=== PATIENT | female | born 1965 | race Caucasian/White ===

== ENCOUNTER → 2018-12-17 | Day surgery (SDC) | payer OTHER ==
[~2018-12-17] VITALS: Ht 160 cm; Wt 62.7 kg
[~2018-12-17] MED LIST: BUPIVACAINE MPF 0.25% 30 ML VIAL. ONE; CALC200T3 PO; DEXAMETHASONE SOD PHOS 20 MG/5 ML VIAL. ONE; FAMOTIDINE 20 MG/2 ML VIAL ONE; HEPARIN PF 500 UNIT/5 ML DISP.SYRIN. IV ONE; HEPARIN for IV BOLUS 10,000 UNIT/10 ML VIAL. ONE; HYDR-2761 PO; HYDR-3164 PO; HYDROcodone/APAP 5/325MG 1 TAB TABLET PO ONE; HYDROcodone/APAP 5/325MG 1 TAB TABLET PO PRN; HYDROmorphone 2 MG/ML VIAL IV PRN; IV RINGERS,LACTATED 1000ML 1,000 ML IV SCH; LIDOCAINE 1% PF 2 ML VIAL. ID PRN; LIDOCAINE 2% PF Vial for OR 5 ML VIAL. ONE; MELO7.5T5 PO; MIDAZOLAM HCL/PF 2 MG/2 ML VIAL. ONE; MORPHINE SULFATE 4 MG/ML VIAL. IV PRN; ONDANSETRON PF 4 MG/2 ML VIAL. IV PRN; ONDANSETRON PF 4 MG/2 ML VIAL. ONE; PROCHLORPERAZINE 10 MG/2 ML VIAL. IV PRN; PROPOFOL 20 ML IV ONE; SEVOFLURANE 31 TO 60 MINUTES. IH ONE; fentaNYL PF VIAL 100 MCG/2 ML VIAL IV PRN; fentaNYL PF VIAL 100 MCG/2 ML VIAL ONE
--- NOTE | 2018-12-17 09:19 | PDOC4 ---
Operative Note Operative Note Date: 12/17/2018 Preoperative diagnosis:Colon cancer Postoperative diagnosis: Same Procedure: Port-A-Cath placement left cephalic vein Surgeon: Marito Specimen: None Dictation: Patient is a 53-year-old female has recently undergone colon resection for colon cancer is needing long-term venous access for chemotherapy. Procedure of Port-A-Cath placement was explained to the patient in detail risk benefits were also discussed including bleeding infection alternatives to this procedure also discussed with the patient who seemed to understand and gave both verbal and written consent to have procedure performed. Patient was taken to the operating room placed in supine position general anesthesia was initiated once patient was sleep and intubated her neck and chest were prepped and draped usual sterile fashion using ChloraPrep. An area in the left deltopectoral groove was injected with quarter percent Marcaine plain incision was made with 15 blade scalpel was carried down through the subcutaneous tissue using electrocautery divided hemostasis the cephalic vein was visualized and controlled proximally and distally with silk ligatures the vein was partially opened 11 blade scalpel and a Salinger wire was placed through the cephalic vein transversing the subclavian into the superior vena cava this was all confirmed by fluoroscopy. At this point a peel-away dilator catheter was then placed over the wire which was placed into the superior vena cava the dilator and wire were removed and the catheter was placed through the peel-away to the superior vena cava the pillars then removed the port was placed on the end of the catheter a pocket was made on the anterior chest wall with blunt dissection and the port was sewn into place with 3-0 Prolene. Port was then accessed there was good blood return is easily flushed it was flushed with 6 mL of 100 units per millimeter heparin. The wound was then closed in 2 layers a deep layer running 3-0 Vicryl and skin was approximate with 4-0 Monocryl. The port was then accessed and packed with 1000 units per millimeter of heparin 2ml were used. Wound was dressed with Mastisol Steri-Strips and island dressing. Patient was awakened and in the operating room taken to recovery in stable condition all sponge instrument needle counts listed as correct estimated blood loss 10 mL SANTOS LOZADA MD Dec 17, 2018 09:19
--- NOTE | 2018-12-17 09:22 | DISCH ---
DISCHARGE INSTRUCTIONS Condition on Discharge Condition on Discharge: Stable Activity After Discharge Activity Instructions for Disc: Activity as tolerated Diet after Discharge Diet after Discharge: Regular Diet Texture: Regular Wound Incision Care Wound/Incision Care: May get incision wet Other wound/incision instructi: May shower in 24 hours Contacting the DRPhilipp after DC Call your doctor for: If your condition worsens Follow-Up Follow up with: Dr. Lozada in 2 weeks Treatment/Equipment after DC Adaptive Equipment Issued: None SANTOS LOZADA MD Dec 17, 2018 09:22
[2018-12-17] MEDS: HYDROcodone/APAP 5/325MG 1 TAB TABLET PO PRN ×2 (10:06→10:35)
[2018-12-17 10:30] VITALS: BP 115/73
== END | disposition home or self-care (01) ==
LOC: SURG 07:08
PROVIDERS: ATTEND Surgery
DX: C18.9 Malignant neoplasm of colon, unspecified (principal); Z88.0 Allergy status to penicillin; Z79.899 Other long term (current) drug therapy; Z98.51 Tubal ligation status; Z98.890 Other specified postprocedural states; Z90.710 Acquired absence of both cervix and uterus; Z90.49 Acquired absence of other specified parts of digestive tract; I83.90 Asymptomatic varicose veins of unspecified lower extremity; Z87.891 Personal history of nicotine dependence; Z80.3 Family history of malignant neoplasm of breast
CPT/HCPCS: 36561; A7015; C1788; J1100; J1644; J1956; J2001; J2250; J2405; J2704; J3010; J3490; J7120; 36556

== ENCOUNTER 2018-12-26 15:25 | Inpatient (IN) | payer OTHER ==
[~2018-12-26] VITALS: Ht 167.6 cm; Wt 61.2 kg
[~2018-12-26 15:25] MED LIST changes: -BUPIVACAINE MPF 0.25% 30 ML VIAL. ONE; -DEXAMETHASONE SOD PHOS 20 MG/5 ML VIAL. ONE; -FAMOTIDINE 20 MG/2 ML VIAL ONE; -HEPARIN PF 500 UNIT/5 ML DISP.SYRIN. IV ONE; -HEPARIN for IV BOLUS 10,000 UNIT/10 ML VIAL. ONE; -HYDROcodone/APAP 5/325MG 1 TAB TABLET PO ONE; -HYDROcodone/APAP 5/325MG 1 TAB TABLET PO PRN; -HYDROmorphone 2 MG/ML VIAL IV PRN; -IV RINGERS,LACTATED 1000ML 1,000 ML IV SCH; -LIDOCAINE 1% PF 2 ML VIAL. ID PRN; -LIDOCAINE 2% PF Vial for OR 5 ML VIAL. ONE; -MIDAZOLAM HCL/PF 2 MG/2 ML VIAL. ONE; -MORPHINE SULFATE 4 MG/ML VIAL. IV PRN; -ONDANSETRON PF 4 MG/2 ML VIAL. IV PRN; -ONDANSETRON PF 4 MG/2 ML VIAL. ONE; -PROCHLORPERAZINE 10 MG/2 ML VIAL. IV PRN; -PROPOFOL 20 ML IV ONE; -SEVOFLURANE 31 TO 60 MINUTES. IH ONE; -fentaNYL PF VIAL 100 MCG/2 ML VIAL IV PRN; -fentaNYL PF VIAL 100 MCG/2 ML VIAL ONE
[2018-12-26 17:59] VITALS: BP 128/78
[2018-12-26] MEDS ORDERED: ONDANSETRON PF 4 MG/2 ML VIAL. IV PRN (18:30)
[2018-12-26] MEDS ORDERED: ZOLPIDEM 5 MG TABLET. PO PRN (18:30)
[2018-12-26] MEDS ORDERED: MORPHINE SULFATE 4 MG/ML VIAL. IV PRN (18:30)
[2018-12-26] MEDS ORDERED: HYDROcodone/APAP 5/325MG 1 TAB TABLET PO PRN (18:30)
[2018-12-26] MEDS ORDERED: ACETAMINOPHEN 325 MG TABLET. PO PRN (18:30)
[2018-12-26] MEDS ORDERED: BISACODYL 10 MG SUPP.RECT. PR PRN (18:30)
[2018-12-26] MEDS ORDERED: MAGNESIUM HYDROXIDE 2,400 MG/30 ML ORAL.SUSP. PO PRN (18:30)
--- NOTE | 2018-12-26 18:46 | PDOC1 ---
History and Physical Date of Admission Date of Admission DATE: 12/26/18 TIME: 18:41 Identification/Chief Complaint Chief Complaint Left arm pain Source Source: Chart review, Patient History of Present Illness History of Present Illness 52yo F w/ PMHx smoking, polyarthralgias, carpal tunnel who p/w LUE pain to [facility] ED, found to have completely occluded left venous system DVT and transferred to [facility] for further care. Back 10/29/19 admitted with cecal mass and fluid collection and bowel obstruction, went to surgery with right hemicolectomy with adenocarcinoma of colon T3N2a, started on FOLFOX and recently had left subclavian permacath placement on 12/17/18 and has had left arm pain and some mild swelling since then. She noted mottling the past 2 days and it has been cool, so came to ED. Has some nausea currently and left arm pain and numbness. Past Medical History Cardiovascular: No pertinent hx Pulmonary: No pertinent hx GI: No pertinent hx Heme/Onc: Cancer (Colon Ca) Hepatobiliary: No pertinent hx Psych: No pertinent hx Musculoskeletal: Other Rheumatologic: No pertinent hx Infectious disease: No pertinent hx Renal/: No pertinent hx Endocrine: No pertinent hx Past Surgical History Past Surgical History: Colectomy, Colon Resection Family History Family History: Cancer, Drug Abuse Family History: Parent Social History ALCOHOL: rare Drugs: None Current Medications Current Medications Current Medications Ondansetron HCl (Zofran) 4 mg PRN Q6HRS PRN IV NAUSEA/VOMITING; Start 12/26/18 at 18:30 Zolpidem Tartrate (Ambien) 5 mg PRN QHS PRN PO INSOMNIA, MAY REPEAT IN 1HR; Start 12/26/18 at 18:30 Morphine Sulfate (Morphine Sulfate) 2 mg PRN Q1HR PRN IV PAIN; Start 12/26/18 at 18:30 Acetaminophen/ Hydrocodone Bitart (Lortab 5/325) 1 tab PRN Q4HRS PRN PO MILD PAIN; Start 12/26/18 at 18:30 Acetaminophen (Tylenol) 650 mg PRN Q6HRS PRN PO Headaches, Temp > 101.5F; Start 12/26/18 at 18:30 Senna/Docusate Sodium (Senna Plus) 1 tab BID PO ; Start 12/26/18 at 21:00 Magnesium Hydroxide (Milk Of Magnesia) 2,400 mg PRN Q12HR PRN PO CONSTIPATION; Start 12/26/18 at 18:30 Bisacodyl (Dulcolax Supp) 10 mg PRN DAILY PRN [place] CONSTIPATION; Start 12/26/18 at 18:30 Enoxaparin Sodium (Lovenox 60mg Syringe) 60 mg Q12HR SQ ; Start 12/26/18 at 23: 00 Active Scripts Active Reported [place] 5-325 Tablet (Acetaminophen/Hydrocodone Bitart) 1 Each Tablet 1-2 Tab PO Q4-6HRS Tums (Calcium Carbonate) 200 Mg Tab.chew 200 Mg PO PRN PRN Mobic (Meloxicam) 7.5 Mg Tablet 1 Tab PO DAILY Allergies Allergies: Coded Allergies: Penicillins (Verified Allergy, Intermediate, Heartbeat slowed down,throat tight,brokeout w/rash all over, 12/17/18) ROS General: YES: Fatigue, Malaise, Appetite; No: Chills, Night Sweats, Other PSYCHOLOGICAL ROS: YES: Anxiety; No: Behavioral Disorder, Concentration difficultie, Decreased libido, Depression, Disorientation, Hallucinations, Hostility, Irritablity, Memory difficulties, Mood Swings, Obsessive thoughts, Physical abuse, Sexual abuse, Sleep disturbances, Suicidal ideation, Other Eyes: No Blurry vision, No Decreased vision, No Double vision, No Dry eyes, No Excessive tearing, No Eye Pain, No Itchy Eyes, No Loss of vision, No Photophobia , No Scotomata, No Uses contacts, No Uses glasses, No Other HEENT: No: Heacaches, Visual Changes, Hearing change, Nasal congestion, Nasal discharge, Oral lesions, Sinus pain, Sore Throat, Epistaxis, Sneezing, Snoring, Tinnitus, Vertigo, Vocal changes, Other ALLERGY AND IMMUNOLOGY: No: Hives, Insect Bite Sensitivity, Itchy/Watery Eyes, Nasal Congestion, Post Nasal Drip, Seasonal Allergies, Other Hematological and Lymphatic: No: Bleeding Problems, Blood Clots, Blood Transfusions, Brusing, Night Sweats, Pallor, Swollen Lymph Nodes, Other ENDOCRINE: No: Breast Changes, Galactorrhea, Hair Pattern Changes, Hot Flashes , Malaise/lethargy, Mood Swings, Palpitations, Polydipsia/polyuria, Skin Changes , Temperature Intolerance, Unexpected Weight Changes, Other Breast: No New/Changing Breast Lumps, No Nipple changes, No Nipple discharge, No Other Respiratory: No: Cough, Hemoptysis, Orthopnea, Pleuritic Pain, Shortness of breath, SOB with excertion, Sputum Changes, Stridor, Tachypnea, Wheezing, Other Cardiovascular: No Chest Pain, No Palpitations, No Orthopnea, No Paroxysmal Noc. Dyspnea, No Edema, No Lt Headedness, No Other Gastrointestinal: Yes Nausea; No Vomiting, No Abdominal Pain, No Diarrhea, No Constipation, No Melena, No Hematochezia, No Other Genitourinary: No Dysuria, No Frequency, No Incontinence, No Hematuria, No Retention, No Discharge, No Urgency, No Pain, No Flank Pain, No Other, No , No , No , No , No , No , No Musculoskeletal: Yes Muscle Pain, Yes Muscular Weakness; No Gait Disturbance, No Joint Pain, No Joint Stiffness, No Joint Swelling, No Pain In:, No Swelling In:, No Other Neurological: No Behavorial Changes, No Bowel/Bladder ControlChng, No Confusion , No Dizziness, No Gait Disturbance, No Headaches, No Impaired Coord/balance, No Memory Loss, No Numbness/Tingling, No Seizures, No Speech Problems, No Tremors, No Visual Changes, No Weakness, No Other Skin: No Dry Skin, No Eczema, No Hair Changes, No Lumps, No Mole Changes, No Mottling, No Nail Changes, No Pruritus, No Rash, No Skin Lesion Changes, No Other, No Acne Physical Exam General: Alert, Oriented X3, Cooperative, No acute distress HEENT: Atraumatic, PERRLA, EOMI, Mucous membr. 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 Port site tender on left chest wall) Neuro: Normal gait, Normal speech, Strength at 5/5 X4 ext, Normal tone, Sensation intact, Cranial nerves 3-12 NL, Reflexes 2+ Psych/Mental Status: Mental status NL, Mood NL Vitals Vitals Vital Signs Date Time Temp Pulse Resp B/P (MAP) Pulse Ox O2 Delivery O2 Flow Rate FiO2 12/26/18 17:59 97.8 94 20 128/78 (95) 95 Room Air 97.8 Images Images Left arm venous US - Extensive DVT including brachial, cephalic and axillary veins Left arm arterial doppler - No evidence of acute arterial occlusion or high- grade stenosis. VTE Prophylaxis Ordered VTE Prophylaxis Devices: Yes VTE Pharmacological Prophylaxi: Yes Assessment/Plan Assessment/Plan A/P: Left arm DVT - extensive. Consulted vascular surgery who recommends arterial doppler, which was negative and to d/w IR for consideration for thrombolysis. I just ordered therapeutic lovenox, may need to wait until AM for this to avoid extensive bleeding. Hematology consulted as well Colon Ca - s/p right hemicolectomy with adenocarcinoma of colon T3N2a, started on FOLFOX and recently had left subclavian permacath placement. Consult colorectal surgery and Oncology Smoking - counseled on cessation, offered nicotine patch Polyarthralgias - with h/o carpal tunnel - will cont pain management FEN - General diet PPX - Lovenox FULL CODE Inpatient for extensive DVT DAVID BROOKS MD Dec 26, 2018 18:46
--- NOTE | 2018-12-26 18:55 | RAD ---
Indication: Weak pulses. History of DVT. TECHNIQUE: Grayscale, color Doppler and spectral waveform images of the left upper extremity arteries. COMPARISON: None FINDINGS: The major left upper extremity arteries are patent with no elevated velocity. IMPRESSION: No evidence of acute arterial occlusion or high-grade stenosis. Electronically signed by: Curtis Cruz DO (12/26/2018 6:53 PM) [facility]
[2018-12-26 19:05] VITALS: BP 117/75
[2018-12-26] MEDS: SENNOSIDES/DOCUSATE 8.6/50MG TABLET. PO SCH (21:00)
--- NOTE | 2018-12-26 23:07 | NUR ---
Held night dose of lovenox due to pt receiving it in ED before admission and per Dr. Contreras note to prevent excessive bleeding to take in morning.
[2018-12-26 23:20] VITALS: BP 139/81
[2018-12-27 03:40] VITALS: BP 127/78
[2018-12-27 04:57] LABS: BASO # 0.1 x10^3/uL (0.0-0.2); BASO % 1 % (0-3); EOS # 0.1 x10^3/uL (0.0-0.7); EOS % 1 % (0-3); HEMATOCRIT 42.5 % (36.0-47.0); HEMOGLOBIN 14.1 g/dL (12.0-15.5); LYMPH % 25 % (24-48); MEAN CORPUSCULAR HEMOGLOBIN 29 pg (25-35); MEAN CORPUSCULAR HGB CONC 33 g/dL (31-37); MEAN CORPUSCULAR VOLUME 89 fL (79-100); MONO # 0.2 x10^3/uL (0.0-1.1); MONO % 3 % (0-9); NEUT # 5.6 x10^3uL (1.8-7.7); NEUT % 70 % (31-73); PLATELET COUNT 269 x10^3/uL (140-400); RED BLOOD COUNT 4.78 x10^6/uL (3.50-5.40); RED CELL DISTRIBUTION WIDTH 15.5 % (11.5-14.5)
[2018-12-27 06:17] LABS: CALCIUM 10.3 mg/dL (8.5-10.1); CREATININE 0.7 mg/dL (0.6-1.0); GFR 87.5; POTASSIUM 4.1 mmol/L (3.5-5.1)
[2018-12-27 07:40] VITALS: BP 131/89
--- NOTE | 2018-12-27 07:53 | PDOC2 ---
CONSULT Date of Consult Date of Consult DATE: 12/27/18 TIME: 07:44 Reason for Consult Reason for Consult: arm swelling, colon cancer Identification/Chief Complaint Chief Complaint arm swelling, after having port placed 12/17/18 History of Present Illness Reason for Visit: 53 yo F w/ PMHx smoking, polyarthralgias, carpal tunnel who p/w LUE pain to [facility] ED, found to have completely occluded left venous system DVT and transferred to [facility] for further care. 10/29/19, she was admitted with cecal mass and fluid collection and bowel obstruction, went to surgery with right hemicolectomy with adenocarcinoma of colon T3N2a, started on FOLFOX and recently had left subclavian permacath placement on 12/17/18 and has had left arm pain and some mild swelling since then. She noted mottling the past 2 days prior to admit. Arterial studies of LUE showed no arterial occlusion. Has some nausea currently and left arm pain that has gotten better. She has palpable pulses and her LUE is warm this morning. She is itching for cup of coffee. Very afraid of needles; does not think she will be able to do Lovenox at home. Has tried full aspirin previously, and it bothered her stomach. Past Medical History Cardiovascular: No pertinent hx Pulmonary: No pertinent hx GI: No pertinent hx Heme/Onc: Cancer (Colon Ca) Hepatobiliary: No pertinent hx Psych: No pertinent hx Musculoskeletal: Other Rheumatologic: No pertinent hx Infectious disease: No pertinent hx Renal/: No pertinent hx Endocrine: No pertinent hx Past Surgical History Past Surgical History: Colectomy, Colon Resection Family History Family History: Cancer, Drug Abuse Social History Social History: Parent ALCOHOL: rare Drugs: None Current Medications Current Medications Current Medications Ondansetron HCl (Zofran) 4 mg PRN Q6HRS PRN IV NAUSEA/VOMITING; Start 12/26/18 at 18:30 Zolpidem Tartrate (Ambien) 5 mg PRN QHS PRN PO INSOMNIA, MAY REPEAT IN 1HR; Start 12/26/18 at 18:30 Morphine Sulfate (Morphine Sulfate) 2 mg PRN Q1HR PRN IV PAIN; Start 12/26/18 at 18:30 Acetaminophen/ Hydrocodone Bitart (Lortab 5/325) 1 tab PRN Q4HRS PRN PO MILD PAIN; Start 12/26/18 at 18:30 Acetaminophen (Tylenol) 650 mg PRN Q6HRS PRN PO Headaches, Temp > 101.5F; Start 12/26/18 at 18:30 Senna/Docusate Sodium (Senna Plus) 1 tab BID PO ; Start 12/26/18 at 21:00 Magnesium Hydroxide (Milk Of Magnesia) 2,400 mg PRN Q12HR PRN PO CONSTIPATION; Start 12/26/18 at 18:30 Bisacodyl (Dulcolax Supp) 10 mg PRN DAILY PRN [place] CONSTIPATION; Start 12/26/18 at 18:30 Enoxaparin Sodium (Lovenox 60mg Syringe) 60 mg Q12HR SQ ; Start 12/26/18 at 23: 00 Active Scripts Active Reported [place] 5-325 Tablet (Acetaminophen/Hydrocodone Bitart) 1 Each Tablet 1-2 Tab PO Q4-6HRS Tums (Calcium Carbonate) 200 Mg Tab.chew 200 Mg PO PRN PRN Mobic (Meloxicam) 7.5 Mg Tablet 1 Tab PO DAILY Allergies Allergies: Coded Allergies: Penicillins (Verified Allergy, Intermediate, Heartbeat slowed down,throat tight,brokeout w/rash all over, 12/17/18) ROS General: YES: Fatigue PSYCHOLOGICAL ROS: No: Anxiety, Behavioral Disorder, Concentration difficultie , Decreased libido, Depression, Disorientation, Hallucinations, Hostility, Irritablity, Memory difficulties, Mood Swings, Obsessive thoughts, Physical abuse, Sexual abuse, Sleep disturbances, Suicidal ideation, Other Eyes: No Blurry vision, No Decreased vision, No Double vision, No Dry eyes, No Excessive tearing, No Eye Pain, No Itchy Eyes, No Loss of vision, No Photophobia , No Scotomata, No Uses contacts, No Uses glasses, No Other HEENT: No: Heacaches, Visual Changes, Hearing change, Nasal congestion, Nasal discharge, Oral lesions, Sinus pain, Sore Throat, Epistaxis, Sneezing, Snoring, Tinnitus, Vertigo, Vocal changes, Other Hematological and Lymphatic: YES: Blood Clots Respiratory: No: Cough, Hemoptysis, Orthopnea, Pleuritic Pain, Shortness of breath, SOB with excertion, Sputum Changes, Stridor, Tachypnea, Wheezing, Other Cardiovascular: No Chest Pain, No Palpitations, No Orthopnea, No Paroxysmal Noc. Dyspnea, No Edema, No Lt Headedness, No Other Gastrointestinal: No Nausea, No Vomiting, No Abdominal Pain, No Diarrhea, No Constipation, No Melena, No Hematochezia, No Other Genitourinary: No Dysuria, No Frequency, No Incontinence, No Hematuria, No Retention, No Discharge, No Urgency, No Pain, No Flank Pain, No Other, No , No , No , No , No , No , No Musculoskeletal: Yes Pain In: (LUE) Neurological: No Behavorial Changes, No Bowel/Bladder ControlChng, No Confusion , No Dizziness, No Gait Disturbance, No Headaches, No Impaired Coord/balance, No Memory Loss, No Numbness/Tingling, No Seizures, No Speech Problems, No Tremors, No Visual Changes, No Weakness, No Other Skin: No Dry Skin, No Eczema, No Hair Changes, No Lumps, No Mole Changes, No Mottling, No Nail Changes, No Pruritus, No Rash, No Skin Lesion Changes, No Other, No Acne Physical Exam General: Alert, Oriented X3 HEENT: Atraumatic Lungs: Clear to auscultation Heart: Regular rate, Other (palpable L radial pulse) Abdomen: Normal bowel sounds Extremities: No clubbing, No cyanosis, Other (LUE swelling) Skin: No rashes, No breakdown Neuro: Normal gait, Normal speech Psych/Mental Status: Mental status NL, Mood NL Vitals VITALS Vital Signs Date Time Temp Pulse Resp B/P (MAP) Pulse Ox O2 Delivery O2 Flow Rate FiO2 12/27/18 07:40 98.1 89 17 131/89 (103) 97 Room Air 98.1 Labs Labs Laboratory Tests Test 12/27/18 04:00 White Blood Count 8.0 x10^3/uL (4.0-11.0) Red Blood Count 4.78 x10^6/uL (3.50-5.40) Hemoglobin 14.1 g/dL (12.0-15.5) Hematocrit 42.5 % (36.0-47.0) Mean Corpuscular Volume 89 fL (79-100) Mean Corpuscular Hemoglobin 29 pg (25-35) Mean Corpuscular Hemoglobin Concent 33 g/dL (31-37) Red Cell Distribution Width 15.5 % (11.5-14.5) Platelet Count 269 x10^3/uL (140-400) Neutrophils (%) (Auto) 70 % (31-73) Lymphocytes (%) (Auto) 25 % (24-48) Monocytes (%) (Auto) 3 % (0-9) Eosinophils (%) (Auto) 1 % (0-3) Basophils (%) (Auto) 1 % (0-3) Neutrophils # (Auto) 5.6 x10^3uL (1.8-7.7) Lymphocytes # (Auto) 2.0 x10^3/uL (1.0-4.8) Monocytes # (Auto) 0.2 x10^3/uL (0.0-1.1) Eosinophils # (Auto) 0.1 x10^3/uL (0.0-0.7) Basophils # (Auto) 0.1 x10^3/uL (0.0-0.2) Sodium Level 137 mmol/L (136-145) Potassium Level 4.1 mmol/L (3.5-5.1) Chloride Level 103 mmol/L (98-107) Carbon Dioxide Level 23 mmol/L (21-32) Anion Gap 11 (6-14) Blood Urea Nitrogen 13 mg/dL (7-20) Creatinine 0.7 mg/dL (0.6-1.0) Estimated GFR (Cockcroft-Gault) 87.5 Glucose Level 108 mg/dL (70-99) Calcium Level 10.3 mg/dL (8.5-10.1) Laboratory Tests Test 12/27/18 04:00 White Blood Count 8.0 x10^3/uL (4.0-11.0) Red Blood Count 4.78 x10^6/uL (3.50-5.40) Hemoglobin 14.1 g/dL (12.0-15.5) Hematocrit 42.5 % (36.0-47.0) Mean Corpuscular Volume 89 fL (79-100) Mean Corpuscular Hemoglobin 29 pg (25-35) Mean Corpuscular Hemoglobin Concent 33 g/dL (31-37) Red Cell Distribution Width 15.5 % (11.5-14.5) Platelet Count 269 x10^3/uL (140-400) Neutrophils (%) (Auto) 70 % (31-73) Lymphocytes (%) (Auto) 25 % (24-48) Monocytes (%) (Auto) 3 % (0-9) Eosinophils (%) (Auto) 1 % (0-3) Basophils (%) (Auto) 1 % (0-3) Neutrophils # (Auto) 5.6 x10^3uL (1.8-7.7) Lymphocytes # (Auto) 2.0 x10^3/uL (1.0-4.8) Monocytes # (Auto) 0.2 x10^3/uL (0.0-1.1) Eosinophils # (Auto) 0.1 x10^3/uL (0.0-0.7) Basophils # (Auto) 0.1 x10^3/uL (0.0-0.2) Sodium Level 137 mmol/L (136-145) Potassium Level 4.1 mmol/L (3.5-5.1) Chloride Level 103 mmol/L (98-107) Carbon Dioxide Level 23 mmol/L (21-32) Anion Gap 11 (6-14) Blood Urea Nitrogen 13 mg/dL (7-20) Creatinine 0.7 mg/dL (0.6-1.0) Estimated GFR (Cockcroft-Gault) 87.5 Glucose Level 108 mg/dL (70-99) Calcium Level 10.3 mg/dL (8.5-10.1) Images Images extensive LUE DVT on doppler study at [facility] arterial studies here neg Assessment/Plan Assessment/Plan 53 yo F c extensive LUE DVT after port placement 12/17/18, on FOLFOX for recently diagnosed locally advanced colon cancer. Switch Lovenox to DOAC - eliquis starter pack 10mg PO BID x 1 week, then 5mg PO BID from then on - due to pt concerns about not being able to self-administer at home, and would also suggest a daily EC baby aspirin as well. I have ordered a CT angio of chest to make sure no propagation of DVT to the lungs. This would help determine how long she may have to be on anticoag. She is not in extremis with her DVT, so she does not need thrombolysis. It will take a few days for her to feel better though. I am okay with her going home today, as long as she will be on DOAC and aspirin , after CT angio. Thanks for consult, Giuseppe, cell [phone] TYLER COX MD Dec 27, 2018 07:53
[2018-12-27] MEDS ORDERED: IOHEXOL 350 MG/ML 100 ML VIAL. IV ONE (08:45)
[2018-12-27] MEDS ORDERED: CONTRAST GIVEN. MC PRN (08:45)
[2018-12-27] MEDS: SENNOSIDES/DOCUSATE 8.6/50MG TABLET. PO SCH (09:00)
[2018-12-27] MEDS ORDERED: APIXABAN 5 MG TABLET. PO SCH (09:00)
[2018-12-27] MEDS ORDERED: ASPIRIN ENTERIC COATED 81 MG TABLET.DR. PO SCH (09:00)
--- NOTE | 2018-12-27 10:00 | RAD ---
CT ANGIOGRAPHY CHEST Indication: extensive LUE DVT, colon cancer. Comparison: No comparison is available. Technique: After intravenous contrast administration, CT imaging was performed of the chest. MIP reconstructions were obtained. Exposure: One or more of the following individualized dose reduction techniques were utilized for this examination: 1. Automated exposure control 2. Adjustment of the mA and/or kV according to patient size 3. Use of iterative reconstruction technique. FINDINGS: No evidence of pulmonary embolism. Thoracic aorta is minimally calcified, without evidence of aneurysm or dissection. No significant lymph node enlargement. No pericardial effusion. Thyroid somewhat asymmetric, slightly larger on the right, but only partially visualized. No pleural effusion. Small nodular opacity in the right upper lobe, best seen on coronal series 5, image 22, is unchanged. Measures about 3 mm. No consolidating infiltrate or large pulmonary mass. Limited scans through the upper abdomen demonstrates splenomegaly. Both adrenals demonstrate a somewhat thickened morphology. Small left adrenal nodule is stable since prior study. Subcentimeter right lobe liver lesion is stable, would most commonly represents a cyst. No aggressive bone destruction. IMPRESSION: 1. No evidence of pulmonary embolism. 2. Tiny right upper lobe pulmonary nodules unchanged. 3. Mild splenomegaly again seen. 4. Left adrenal nodule is stable. 5. Thyroid heterogeneity and asymmetry is again identified appears similar. Thyroid partially included on the study. Electronically signed by: Chuy Car MD (12/27/2018 9:57 AM) [facility]
[2018-12-27 10:58] VITALS: BP 146/86
[2018-12-27] MEDS ORDERED: APIX5TAB PO (11:46)
[2018-12-27] MEDS ORDERED: ASPI-612 PO (11:48)
--- NOTE | 2018-12-27 13:05 | NUR ---
Discharged patient to home. Discharge instructions given. PIV and heart monitor removed. Escorted patient per wheelchair to east entrance into a private vehicle.
--- NOTE | 2018-12-27 13:17 | PDOC3 ---
Discharge Summary Visit Information Date of Admission: Dec 26, 2018 Date of Discharge: Dec 27, 2018 Admitting Diagnosis Comment: left upper extremity dvt Final Diagnosis extensive LUE DVT after port placement 12/17/18, on FOLFOX for recently diagnosed locally advanced colon cancer. Brief Hospital Course Allergies Allergies Coded Allergies Type Severity Reaction Last Updated Verified Penicillins Allergy Intermediate Heartbeat slowed down,throat tight,brokeout w /rash all over 12/17/18 Yes Vital Signs Vital Signs Date Time Temp Pulse Resp B/P (MAP) Pulse Ox O2 Delivery O2 Flow Rate FiO2 12/27/18 10:58 98.1 103 17 146/86 (106) 98 Room Air 98.1 Lab Results Laboratory Tests Test 12/27/18 04:00 White Blood Count 8.0 x10^3/uL (4.0-11.0) Red Blood Count 4.78 x10^6/uL (3.50-5.40) Hemoglobin 14.1 g/dL (12.0-15.5) Hematocrit 42.5 % (36.0-47.0) Mean Corpuscular Volume 89 fL (79-100) Mean Corpuscular Hemoglobin 29 pg (25-35) Mean Corpuscular Hemoglobin Concent 33 g/dL (31-37) Red Cell Distribution Width 15.5 % (11.5-14.5) Platelet Count 269 x10^3/uL (140-400) Neutrophils (%) (Auto) 70 % (31-73) Lymphocytes (%) (Auto) 25 % (24-48) Monocytes (%) (Auto) 3 % (0-9) Eosinophils (%) (Auto) 1 % (0-3) Basophils (%) (Auto) 1 % (0-3) Neutrophils # (Auto) 5.6 x10^3uL (1.8-7.7) Lymphocytes # (Auto) 2.0 x10^3/uL (1.0-4.8) Monocytes # (Auto) 0.2 x10^3/uL (0.0-1.1) Eosinophils # (Auto) 0.1 x10^3/uL (0.0-0.7) Basophils # (Auto) 0.1 x10^3/uL (0.0-0.2) Sodium Level 137 mmol/L (136-145) Potassium Level 4.1 mmol/L (3.5-5.1) Chloride Level 103 mmol/L (98-107) Carbon Dioxide Level 23 mmol/L (21-32) Anion Gap 11 (6-14) Blood Urea Nitrogen 13 mg/dL (7-20) Creatinine 0.7 mg/dL (0.6-1.0) Estimated GFR (Cockcroft-Gault) 87.5 Glucose Level 108 mg/dL (70-99) Calcium Level 10.3 mg/dL (8.5-10.1) Laboratory Tests Test 12/27/18 04:00 White Blood Count 8.0 x10^3/uL (4.0-11.0) Red Blood Count 4.78 x10^6/uL (3.50-5.40) Hemoglobin 14.1 g/dL (12.0-15.5) Hematocrit 42.5 % (36.0-47.0) Mean Corpuscular Volume 89 fL (79-100) Mean Corpuscular Hemoglobin 29 pg (25-35) Mean Corpuscular Hemoglobin Concent 33 g/dL (31-37) Red Cell Distribution Width 15.5 % (11.5-14.5) Platelet Count 269 x10^3/uL (140-400) Neutrophils (%) (Auto) 70 % (31-73) Lymphocytes (%) (Auto) 25 % (24-48) Monocytes (%) (Auto) 3 % (0-9) Eosinophils (%) (Auto) 1 % (0-3) Basophils (%) (Auto) 1 % (0-3) Neutrophils # (Auto) 5.6 x10^3uL (1.8-7.7) Lymphocytes # (Auto) 2.0 x10^3/uL (1.0-4.8) Monocytes # (Auto) 0.2 x10^3/uL (0.0-1.1) Eosinophils # (Auto) 0.1 x10^3/uL (0.0-0.7) Basophils # (Auto) 0.1 x10^3/uL (0.0-0.2) Sodium Level 137 mmol/L (136-145) Potassium Level 4.1 mmol/L (3.5-5.1) Chloride Level 103 mmol/L (98-107) Carbon Dioxide Level 23 mmol/L (21-32) Anion Gap 11 (6-14) Blood Urea Nitrogen 13 mg/dL (7-20) Creatinine 0.7 mg/dL (0.6-1.0) Estimated GFR (Cockcroft-Gault) 87.5 Glucose Level 108 mg/dL (70-99) Calcium Level 10.3 mg/dL (8.5-10.1) Imaging PATIENT: RICARDO RIVERA ACCOUNT: [id number] : 1965 LOCATION: [address] [place] [address] AGE: 53 SEX: F EXAM STATUS: ADM IN ORD. PHYSICIAN: TYLER COX MD REASON: extensive LUE DVT, recent cancer diagnosis, eval for PE PROCEDURE: CT ANGIOGRAPHY CHEST CT ANGIOGRAPHY CHEST Indication: extensive LUE DVT, colon cancer. Comparison: No comparison is available. Technique: After intravenous contrast administration, CT imaging was performed of the chest. MIP reconstructions were obtained. Exposure: One or more of the following individualized dose reduction techniques were utilized for this examination: 1. Automated exposure control 2. Adjustment of the mA and/or kV according to patient size 3. Use of iterative reconstruction technique. FINDINGS: No evidence of pulmonary embolism. Thoracic aorta is minimally calcified, without evidence of aneurysm or dissection. No significant lymph node enlargement. No pericardial effusion. Thyroid somewhat asymmetric, slightly larger on the right, but only partially visualized. No pleural effusion. Small nodular opacity in the right upper lobe, best seen on coronal series 5, image 22, is unchanged. Measures about 3 mm. No consolidating infiltrate or large pulmonary mass. Limited scans through the upper abdomen demonstrates splenomegaly. Both adrenals demonstrate a somewhat thickened morphology. Small left adrenal nodule is stable since prior study. Subcentimeter right lobe liver lesion is stable, would most commonly represents a cyst. No aggressive bone destruction. IMPRESSION: 1. No evidence of pulmonary embolism. 2. Tiny right upper lobe pulmonary nodules unchanged. 3. Mild splenomegaly again seen. 4. Left adrenal nodule is stable. 5. Thyroid heterogeneity and asymmetry is again identified appears similar. Thyroid partially included on the study. Electronically signed by: Chuy Car MD (12/27/2018 9:57 AM) [facility] DICTATED and SIGNED BY: CHUY CAR MD DATE: 12/27/18 0939 Brief Hospital Course 52yo F w/ PMHx smoking, polyarthralgias, carpal tunnel who p/w LUE pain to [facility] ED, found to have completely occluded left venous system DVT and transferred to [facility] for further care. Back 10/29/19 admitted with cecal mass and fluid collection and bowel obstruction, went to surgery with right hemicolectomy with adenocarcinoma of colon T3N2a, started on FOLFOX and recently had left subclavian permacath placement on 12/17/18 and has had left arm pain and some mild swelling since then. She noted mottling the past 2 days and it has been cool, so came to ED. Has some nausea currently and left arm pain and numbness. Patient was seen in consultation by oncology. The patient was sent for a CT angiogram of her chest in order to determine whether the patient was having thrombotic burden in her pulmonary system. This was negative and she was deemed appropriate for discharge on aspirin and Eliquis. The patient is in agreement with the treatment plan she will be going home today in hemodynamically stable condition Physical exam: Cardia vascular S1-S2 regular rhythm, resells or rubs lungs were clear to auscultation bilaterally Neurologically cranial nerves II-12 intact motor or sensory deficits appreciated Discharge Information Condition at Discharge: Improved Follow Up: Weeks Disposition/Orders: D/C to Home Scheduled Apixaban (Eliquis) 5 Mg Tablet, 10 MG PO BID for dvt for 30 Days, #120 2 tabs po twice a day for a week and then 1 tab po twice a day Prescribed by: TINY MORFIN MD on 12/27/18 1146 Aspirin (Aspirin Ec) 81 Mg Tablet.dr, 81 MG PO DAILYWBKFT for antiplatelet for 30 Days, #30 Prescribed by: TINY MORFIN MD on 12/27/18 1148 Hydrocodone/Apap 5-325 ([place] 5-325 Tablet) 1 Each Tablet, 1-2 TAB PO Q4-6HRS for Pain, #20 (Reported) Entered as Reported by: JD CESAR RN on 12/17/18 0930 Scheduled PRN Calcium Carbonate (Tums) 200 Mg Tab.chew, 200 MG PO PRN PRN for INDIGESTION, ( Reported) Entered as Reported by: JACQUE JOHNSON on 12/17/18 0716 Discontinued Medications Meloxicam (Mobic) 7.5 Mg Tablet, 1 TAB PO DAILY for pain, #30 Ref 1 (Reported) Entered as Reported by: ENDY VILLEDA on 10/29/18 1602 TINY MORFIN MD Dec 27, 2018 13:17
--- NOTE | 2018-12-27 13:34 | PDOC2 ---
CONSULT Date of Consult Date of Consult DATE: 12/27/18 TIME: 13:30 Reason for Consult Reason for Consult: LUE DVT Referring Physician Referring Physician: Sol Identification/Chief Complaint Chief Complaint LUE pain and swelling Source Source: Chart review, Patient History of Present Illness Reason for Visit: 53 yo F s/p recent portacath placement developed pain and swelling with mottling of LUE. This prompted evaluation in ER at [facility] and transferred to [facility]. She has been started on anticoagulation and feels better today with mild pain. Past Medical History Cardiovascular: No pertinent hx Pulmonary: No pertinent hx GI: No pertinent hx Heme/Onc: Cancer (Colon Ca) Hepatobiliary: No pertinent hx Psych: No pertinent hx Musculoskeletal: Other Rheumatologic: No pertinent hx Infectious disease: No pertinent hx Renal/: No pertinent hx Endocrine: No pertinent hx Past Surgical History Past Surgical History: Colectomy, Colon Resection Family History Family History: Cancer, Drug Abuse Social History Social History: Parent ALCOHOL: rare Drugs: None Current Medications Current Medications Current Medications Ondansetron HCl (Zofran) 4 mg PRN Q6HRS PRN IV NAUSEA/VOMITING; Start 12/26/18 at 18:30 Zolpidem Tartrate (Ambien) 5 mg PRN QHS PRN PO INSOMNIA, MAY REPEAT IN 1HR; Start 12/26/18 at 18:30 Morphine Sulfate (Morphine Sulfate) 2 mg PRN Q1HR PRN IV PAIN; Start 12/26/18 at 18:30 Acetaminophen/ Hydrocodone Bitart (Lortab 5/325) 1 tab PRN Q4HRS PRN PO MILD PAIN Last administered on 12/27/18at 09:58; Start 12/26/18 at 18:30 Acetaminophen (Tylenol) 650 mg PRN Q6HRS PRN PO Headaches, Temp > 101.5F; Start 12/26/18 at 18:30 Senna/Docusate Sodium (Senna Plus) 1 tab BID PO ; Start 12/26/18 at 21:00 Magnesium Hydroxide (Milk Of Magnesia) 2,400 mg PRN Q12HR PRN PO CONSTIPATION; Start 12/26/18 at 18:30 Bisacodyl (Dulcolax Supp) 10 mg PRN DAILY PRN [place] CONSTIPATION; Start 12/26/18 at 18:30 Enoxaparin Sodium (Lovenox 60mg Syringe) 60 mg Q12HR SQ ; Start 12/26/18 at 23: 00; Stop 12/27/18 at 08:49; Status DC Iohexol (Omnipaque 350 Mg/ml) 90 ml 1X ONCE IV Last administered on 12/27/18at 08:45; Start 12/27/18 at 08:45; Stop 12/27/18 at 08:46; Status DC Info (CONTRAST GIVEN -- Rx MONITORING) 1 each PRN DAILY PRN MC SEE COMMENTS; Start 12/27/18 at 08:45; Stop 12/29/18 at 08:44 Aspirin (Ecotrin) 81 mg DAILYWBKFT PO Last administered on 12/27/18at 09:56; Start 12/27/18 at 09:00 Apixaban (Eliquis) 10 mg BID PO Last administered on 12/27/18at 09:57; Start at 09:00; Stop 01/02/19 at 21:01 Active Scripts Active Aspirin Ec (Aspirin) 81 Mg Tablet.dr 81 Mg PO DAILYWBKFT 30 Days Eliquis (Apixaban) 5 Mg Tablet 10 Mg PO BID 30 Days 2 tabs po twice a day for a week and then 1 tab po twice a day Reported [place] 5-325 Tablet (Acetaminophen/Hydrocodone Bitart) 1 Each Tablet 1-2 Tab PO Q4-6HRS Tums (Calcium Carbonate) 200 Mg Tab.chew 200 Mg PO PRN PRN Allergies Allergies: Coded Allergies: Penicillins (Verified Allergy, Intermediate, Heartbeat slowed down,throat tight,brokeout w/rash all over, 12/17/18) ROS Musculoskeletal: Yes Other (LUE pain and swelling) Physical Exam General: Alert, Oriented X3, Cooperative, No acute distress HEENT: Atraumatic Lungs: Normal air movement, Other (Left chest portacath incision c/d/i) Abdomen: Soft Extremities: Other (mild discoloration of LUE, radial pulse intact) Psych/Mental Status: Mental status NL, Mood NL Vitals VITALS Vital Signs Date Time Temp Pulse Resp B/P (MAP) Pulse Ox O2 Delivery O2 Flow Rate FiO2 12/27/18 10:58 98.1 103 17 146/86 (106) 98 Room Air 98.1 Labs Labs Laboratory Tests Test 12/27/18 04:00 White Blood Count 8.0 x10^3/uL (4.0-11.0) Red Blood Count 4.78 x10^6/uL (3.50-5.40) Hemoglobin 14.1 g/dL (12.0-15.5) Hematocrit 42.5 % (36.0-47.0) Mean Corpuscular Volume 89 fL (79-100) Mean Corpuscular Hemoglobin 29 pg (25-35) Mean Corpuscular Hemoglobin Concent 33 g/dL (31-37) Red Cell Distribution Width 15.5 % (11.5-14.5) Platelet Count 269 x10^3/uL (140-400) Neutrophils (%) (Auto) 70 % (31-73) Lymphocytes (%) (Auto) 25 % (24-48) Monocytes (%) (Auto) 3 % (0-9) Eosinophils (%) (Auto) 1 % (0-3) Basophils (%) (Auto) 1 % (0-3) Neutrophils # (Auto) 5.6 x10^3uL (1.8-7.7) Lymphocytes # (Auto) 2.0 x10^3/uL (1.0-4.8) Monocytes # (Auto) 0.2 x10^3/uL (0.0-1.1) Eosinophils # (Auto) 0.1 x10^3/uL (0.0-0.7) Basophils # (Auto) 0.1 x10^3/uL (0.0-0.2) Sodium Level 137 mmol/L (136-145) Potassium Level 4.1 mmol/L (3.5-5.1) Chloride Level 103 mmol/L (98-107) Carbon Dioxide Level 23 mmol/L (21-32) Anion Gap 11 (6-14) Blood Urea Nitrogen 13 mg/dL (7-20) Creatinine 0.7 mg/dL (0.6-1.0) Estimated GFR (Cockcroft-Gault) 87.5 Glucose Level 108 mg/dL (70-99) Calcium Level 10.3 mg/dL (8.5-10.1) Laboratory Tests Test 12/27/18 04:00 White Blood Count 8.0 x10^3/uL (4.0-11.0) Red Blood Count 4.78 x10^6/uL (3.50-5.40) Hemoglobin 14.1 g/dL (12.0-15.5) Hematocrit 42.5 % (36.0-47.0) Mean Corpuscular Volume 89 fL (79-100) Mean Corpuscular Hemoglobin 29 pg (25-35) Mean Corpuscular Hemoglobin Concent 33 g/dL (31-37) Red Cell Distribution Width 15.5 % (11.5-14.5) Platelet Count 269 x10^3/uL (140-400) Neutrophils (%) (Auto) 70 % (31-73) Lymphocytes (%) (Auto) 25 % (24-48) Monocytes (%) (Auto) 3 % (0-9) Eosinophils (%) (Auto) 1 % (0-3) Basophils (%) (Auto) 1 % (0-3) Neutrophils # (Auto) 5.6 x10^3uL (1.8-7.7) Lymphocytes # (Auto) 2.0 x10^3/uL (1.0-4.8) Monocytes # (Auto) 0.2 x10^3/uL (0.0-1.1) Eosinophils # (Auto) 0.1 x10^3/uL (0.0-0.7) Basophils # (Auto) 0.1 x10^3/uL (0.0-0.2) Sodium Level 137 mmol/L (136-145) Potassium Level 4.1 mmol/L (3.5-5.1) Chloride Level 103 mmol/L (98-107) Carbon Dioxide Level 23 mmol/L (21-32) Anion Gap 11 (6-14) Blood Urea Nitrogen 13 mg/dL (7-20) Creatinine 0.7 mg/dL (0.6-1.0) Estimated GFR (Cockcroft-Gault) 87.5 Glucose Level 108 mg/dL (70-99) Calcium Level 10.3 mg/dL (8.5-10.1) Images Images DVT LUE Assessment/Plan Assessment/Plan LUE DVT agree with plans per hematology for anticoagulation pt to f/u with Dr. Devi this week Thanks for consult! RIZWANA VELAZQUEZ MD Dec 27, 2018 13:34
== END 2018-12-27 13:05 | disposition home or self-care (01) | DRG 300 ==
LOC: 2 SOUTH 16:58
PROVIDERS: ADMIT Internal Medicine; ATTEND Internal Medicine
DX: I82.622 Acute embolism and thrombosis of deep veins of left upper extremity (principal); C18.9 Malignant neoplasm of colon, unspecified; F17.210 Nicotine dependence, cigarettes, uncomplicated; M25.50 Pain in unspecified joint; Z79.899 Other long term (current) drug therapy; Z86.718 Personal history of other venous thrombosis and embolism; Z90.49 Acquired absence of other specified parts of digestive tract; Z80.9 Family history of malignant neoplasm, unspecified; Z81.3 Family history of other psychoactive substance abuse and dependence; Z88.0 Allergy status to penicillin; Z71.6 Tobacco abuse counseling
CPT/HCPCS: 36415; 71275; 80048; 85025; 93931; Q9967

== ENCOUNTER → 2019-04-12 | Outpatient (CLI) | payer OTHER ==
[~2019-04-12] MED LIST changes: +APIX5TAB PO; +ASPI-612 PO
--- NOTE | 2019-04-12 09:33 | RAD ---
UE VENOUS DUPLEX LEFT Left upper extremity venous duplex was performed using B-mode, color-flow, and spectral Doppler. Indication: Left upper extremity DVT, assess for changes Findings: The Left internal jugular, subclavian, axillary, brachial, basilic, and cephalic veins were assessed for patency. All the vessels were found to be compressible and demonstrated phasic, competent to flow with normal augmentation. Impression: Negative study for acute DVT of the left upper extremity. Compared to prior examination the previously seen DVT within the distal left subclavian vein, axillary vein, brachial vein and basilic and cephalic veins has since resolved. Electronically signed by: Vinny Grimes MD (04/12/2019 9:30 AM) [id number]
== END | disposition home or self-care (01) ==
LOC: US 08:31
PROVIDERS: ATTEND Nurse Practitioner Adult Health
DX: I82.622 Acute embolism and thrombosis of deep veins of left upper extremity (principal)
CPT/HCPCS: 93971

== ENCOUNTER → 2019-04-28 | Outpatient (CLI) | payer OTHER ==
[~2019-04-28] MED LIST changes: +IOHEXOL 240 MG/ML 50ML VIAL. PO ONE; +IOHEXOL 300 MG/ML 100ML VIAL. IV ONE
--- NOTE | 2019-04-28 15:12 | RAD ---
CT of the chest, abdomen, and pelvis 04/28/2019 INDICATION: History of colon cancer CT angiography of the chest December 27, 2018 Comparison study: CT of the abdomen and pelvis performed at [facility] 10/29/2018 technique: Multidetector CT imaging of the chest, abdomen, and pelvis was obtained following the administration of IV contrast. FINDINGS: Heart size is normal. No pericardial effusion is identified. No pathologically enlarged mediastinal adenopathy is identified. Small scattered mediastinal lymph nodes noted. There is no pneumothorax, pleural effusion, or focal consolidative infiltrate. Mild emphysematous changes are present throughout the lungs. 4 mm noncalcified nodule, right lower lobe is unchanged (axial image 50). Probable partially calcified nodule in the superior lower lobe is also unchanged measuring approximately 3 mm in diameter (axial image 41 no other pulmonary nodules are identified. The bony thorax is intact. Cholelithiasis noted. The liver is otherwise unremarkable. The spleen is enlarged measuring 1318.5 cm AP by approximately 6.6 cm transverse by 12 cm longitudinally. Fat-containing lesion in the left adrenal gland is consistent with an adenoma. Right adrenal gland is unremarkable. Pancreas is grossly unremarkable. Small cyst seen within the inferior pole the left kidney. Kidneys are otherwise unremarkable. Prior right colectomy noted. There is no evidence of bowel obstruction. No evidence of acute inflammatory change involving visualized bowel is identified. There is a nonspecific area of stranding in the right lower quadrant mesentery immediately anterior to the psoas musculature. This may be residual postsurgical change. Tiny lymph nodes noted in this area. No comparison is available for review. Prior hysterectomy is noted. Rounded structures in the bilateral adnexa likely represent ovaries. The bladder is grossly unremarkable. Impression: 1. No evidence of acute cardiopulmonary or intra-abdominal abnormality. 2. Stable small sub-5 mm nodules in the right lower lobe. Follow-up to ensure two-year stability recommended. 2. Nonspecific area of stranding in the right lower quadrant mesentery adjacent to the psoas muscle. Findings may reflect postsurgical change. Attention on follow-up recommended. CT DOSING PQRS STATEMENT: One or more of the following individualized dose reduction techniques were utilized for this examination: 1. Automated exposure control 2. Adjustment of the mA and/or kV according to patient size 3. Use of iterative reconstruction technique Electronically signed by: Jaya Pacheco MD (04/28/2019 3:09 PM) [facility]
--- NOTE | 2019-04-28 16:55 | RAD ---
Whole body bone scan Clinical indications: Staging recent colon cancer. TECHNIQUE: After IV infusion of 25 mCi Tc 99 MDP, delayed anterior and posterior planar images of the entire skeleton was performed. COMPARISON: No previous bone scan. FINDINGS: Bilateral renal function is evident. There is no abnormal pattern of uptake to indicate osseous metastatic disease. There is mild degenerative change within the cervical spine and there is degenerative change involving the AC joints of both shoulders and degenerative changes involving both SI joints. IMPRESSION: No osseous metastatic disease is evident. Electronically signed by: Tomi Reeder MD (04/28/2019 4:52 PM) [place] [id number]
== END | disposition home or self-care (01) ==
LOC: NM 08:47
PROVIDERS: ATTEND Internal Medicine Hematology & Oncology
DX: C18.2 Malignant neoplasm of ascending colon (principal); E83.52 Hypercalcemia; R91.8 Other nonspecific abnormal finding of lung field; J43.9 Emphysema, unspecified; K80.20 Calculus of gallbladder without cholecystitis without obstruction; R16.1 Splenomegaly, not elsewhere classified; M47.812 Spondylosis without myelopathy or radiculopathy, cervical region; M47.818 Spondylosis without myelopathy or radiculopathy, sacral and sacrococcygeal region; M19.011 Primary osteoarthritis, right shoulder; M19.012 Primary osteoarthritis, left shoulder; Z90.710 Acquired absence of both cervix and uterus
CPT/HCPCS: 71260; 74177; 78306; A9503; Q9966; Q9967

== ENCOUNTER → 2019-07-08 | Day surgery (SDC) | payer OTHER ==
[~2019-07-08] VITALS: Ht 160 cm; Wt 68.0 kg
[~2019-07-08] MED LIST changes: +ACETAMINOPHEN 500 MG TABLET PO ONE; +BUPIVACAINE-EPI 0.25%-1:200000 MPF 30 ML VIAL. INJ ONE; +DEXAMETHASONE SOD PHOS 20 MG/5 ML VIAL. ONE; +FOLI1TAB16 PO; +GABA600T7 PO; +GLYCOPYRROLATE 1 MG/5 ML VIAL. ONE; +HYDROmorphone 2 MG/ML VIAL IV PRN; -IOHEXOL 240 MG/ML 50ML VIAL. PO ONE; -IOHEXOL 300 MG/ML 100ML VIAL. IV ONE; +IV RINGERS,LACTATED 1000ML 1,000 ML IV SCH; +KETOROLAC 30 MG/ML INJ FOR OR. INJ ONE; +LIDOCAINE 1% PF 2 ML VIAL. ID PRN; +LIDOCAINE 2% PF 5 ML VIAL. ONE; +MIDAZOLAM HCL/PF 2 MG/2 ML VIAL. ONE; +NEOSTIGMINE METHYLSULFATE 5 MG/5 ML SYRINGE. ONE; +ONDANSETRON PF 4 MG/2 ML VIAL. IV PRN; +ONDANSETRON PF 4 MG/2 ML VIAL. ONE; +OXYC1TAB15 PO; +PROCHLORPERAZINE 10 MG/2 ML VIAL. IV PRN; +PROPOFOL 20 ML IV ONE; +ROCURONIUM 50 MG/5 ML VIAL. ONE; +SEVOFLURANE > 120 MINUTES. IH ONE; +fentaNYL PF VIAL 100 MCG/2 ML VIAL IV PRN; +fentaNYL PF VIAL 250 MCG/5 ML VIAL ONE; +oxyCODONE/APAP 5/325 1 TAB TABLET PO ONE
--- NOTE | 2019-07-08 14:33 | PDOC4 ---
Operative Note Operative Note Date: 07/08/2019 Preoperative diagnosis: Incisional ventral hernia and Port-A-Cath in place Postoperative diagnosis: Same Procedure: Robotic-assisted laparoscopic incisional hernia repair with mesh and removal of Port-A-Cath Surgeon: Marito Specimen: Port-A-Cath Dictation: Patient is a 53-year-old female who at undergone a colon resection for obstructing colon mass about a year ago has undergone chemotherapy returns with complaints of a bulge in the midline at the incision site and requests removal of her Port-A-Cath that she is finished with chemotherapy. Procedure of robotic-assisted laparoscopic hernia repair with mesh was explained to the patient detail risk benefits were also discussed including bleeding infection injury to intra-abdominal contents possibly necessitating further or open operations also discussed removal Port-A-Cath. The patient seemed to understand and gave both verbal and written consent to have the procedure performed. Patient was taken to the operating room placed in supine position general anesthesia was initiated once patient was sleep and intubated her abdomen and chest were prepped and draped usual sterile fashion using ChloraPrep and area in the left upper quadrant was injected with quarter percent Marcaine with epinephrine incision was made 11 blade scalpel and a 5 mm Visiport was placed under direct visualization into the abdomen and a pneumoperitoneum was achieved once this complete 5 mm camera was placed within the abdomen which was inspected was noted she had extensive adhesions to the hernia. Under direct visualization a 8mm da Michael port was placed in the left mid abdomen one in the left lower abdomen and one in the left upper abdomen the da Michael robot was then brought in and docked all port sites using grasper and Endo Saeed scissors the extensive adhesions were taken down with sharp dissection. The hernia defect was then closed with running 20 nonabsorbable V lock suture. Ventral light ST mesh was then placed over the hernia defect this was sewn into place with a running 20V LOC absorbable suture. Once this was complete the pneumoperitoneum was reduced all ports removed and the da Michael robot was moved from the operative field surgeon return to the operative field and the skin over the port was incised with 15 blade scalpel was carried down through the subcutaneous tissue using electrocautery divided hemostasis teleport was excised sharply and sent for gross pathology. All port sites and Port-A-Cath incision site were closed for septic and a Monocryl Mastisol Steri-Strips island dressings were applied. A abdominal binder was also applied and the patient was awakened and extubated in the operating room taken to recovery in stable condition all sponge instrument needle counts listed as correct estimated blood loss 20 mL. SANTOS LOZADA MD Jul 08, 2019 14:33
--- NOTE | 2019-07-08 14:36 | DISCH ---
DISCHARGE INSTRUCTIONS Condition on Discharge Condition on Discharge: Stable Activity After Discharge Activity Instructions for Disc: Avoid exertion Other activity instructions: no lifting more than 20 pounds for 2 weeks Diet after Discharge Diet after Discharge: Regular Wound Incision Care Other wound/incision instructi: May shower in 24 hours, Contacting the DRPhilipp after DC Call your doctor for: If your condition worsens Follow-Up Follow up with: Dr. Lozada in 2 weeks Treatment/Equipment after DC Comment: abdominal binder to be worn while awake SANTOS LOZADA MD Jul 08, 2019 14:36
[2019-07-08] MEDS: fentaNYL PF VIAL 100 MCG/2 ML VIAL IV PRN ×2 (15:04→15:24)
[2019-07-08] MEDS: MORPHINE SULFATE 2 MG/ML VIAL. IV PRN ×2 (15:49→16:14)
[2019-07-08 17:40] VITALS: BP 128/78
== END ==
LOC: SURG 09:52
PROVIDERS: ATTEND Surgery
DX: K43.2 Incisional hernia without obstruction or gangrene (principal)
CPT/HCPCS: 36590; 49654; A7015; C1781; J0780; J1100; J1885; J1956; J2001; J2250; J2270; J2405; J2704; J2710; J3010; J3490; J7120; S2900

== ENCOUNTER → 2019-10-13 | Outpatient (CLI) | payer OTHER ==
[2019-07-08 17:40] VITALS: BP 128/78
[~2019-10-13] MED LIST changes: -ACETAMINOPHEN 500 MG TABLET PO ONE; -BUPIVACAINE-EPI 0.25%-1:200000 MPF 30 ML VIAL. INJ ONE; +CONTRAST GIVEN. MC PRN; -DEXAMETHASONE SOD PHOS 20 MG/5 ML VIAL. ONE; -GLYCOPYRROLATE 1 MG/5 ML VIAL. ONE; -HYDROmorphone 2 MG/ML VIAL IV PRN; +IOHEXOL 240 MG/ML 50ML VIAL. PO ONE; +IOHEXOL 300 MG/ML 100ML VIAL. IV ONE; -IV RINGERS,LACTATED 1000ML 1,000 ML IV SCH; -KETOROLAC 30 MG/ML INJ FOR OR. INJ ONE; -LIDOCAINE 1% PF 2 ML VIAL. ID PRN; -LIDOCAINE 2% PF 5 ML VIAL. ONE; -MIDAZOLAM HCL/PF 2 MG/2 ML VIAL. ONE; -NEOSTIGMINE METHYLSULFATE 5 MG/5 ML SYRINGE. ONE; -ONDANSETRON PF 4 MG/2 ML VIAL. IV PRN; -ONDANSETRON PF 4 MG/2 ML VIAL. ONE; -PROCHLORPERAZINE 10 MG/2 ML VIAL. IV PRN; -PROPOFOL 20 ML IV ONE; -ROCURONIUM 50 MG/5 ML VIAL. ONE; -SEVOFLURANE > 120 MINUTES. IH ONE; -fentaNYL PF VIAL 100 MCG/2 ML VIAL IV PRN; -fentaNYL PF VIAL 250 MCG/5 ML VIAL ONE; -oxyCODONE/APAP 5/325 1 TAB TABLET PO ONE
--- NOTE | 2019-10-13 16:43 | RAD ---
CT study chest and abdomen and pelvis with contrast Clinical indications: Malignant neoplasm of ascending colon. Follow-up study. COMPARISON: Chest CTA dated December 27, 2018. April 28, 2019 chest and abdomen and pelvis CT. TECHNIQUE: After IV infusion of 75 cc of Omnipaque 300, helical CT scanning of the chest and abdomen and pelvis was performed. GI contrast was administered per mouth. PQRS compliance Statement One or more of the following individualized dose reduction techniques were utilized for this study: 1. Automated exposure control 2. Adjustment of the mA and/or kV according to patient size 3. Use of iterative reconstruction technique CHEST CT: There is a small hypodense nodule of the lower pole of the right lobe of the thyroid gland measuring 10 mm which is unchanged. No enlarged thoracic lymphadenopathy is evident. No focal aneurysmal dilatation or dissection of thoracic aorta is seen. The heart size normal and no pericardial effusion is evident. Again seen is a calcified nodule of the anterior medial aspect of the right lower lobe. On image 51 series 2, there is a small right lower lobe lung nodule which is unchanged in size measuring 4 mm. No new lung nodules. No new lung infiltrate is seen. No pleural effusion or pneumothorax is evident. The proximal bronchial tree is patent. No lytic process is seen. IMPRESSION: Stable small 4 mm right lower lobe lung nodule most likely a benign finding. No new lung nodules are evident. Stable 10 mm nodule of the right lobe of the thyroid gland. ABDOMEN AND PELVIS CT: There is a small subcentimeter hypodense nodule within the posterior dome of the right lobe liver which is unchanged. No new hepatic nodule is evident. The spleen measures 12.3 cm in length which is normal. The pancreas is normal. Gallbladder contains multiple small gallstones. No extrahepatic biliary ductal dilatation is seen. The fullness of the left adrenal gland seen previously on December 27, 2018 is not as prominent today. This may indicate improvement of adrenal gland hyperplasia. No focal aneurysmal dilatation of the abdominal aorta is seen. Both kidneys are normal without hydronephrosis or hydroureter. Urinary bladder wall is smooth. Uterus is surgically absent. The ovaries are symmetric. No obstructive bowel pattern is evident. There is mild fecal retention throughout the colon and rectum. Anterior abdominal wall postsurgical change is seen. Deep within the incision is a small fluid collection with peripheral rim enhancement which measures 3 cm in greatest dimension. This is consistent with a postoperative seroma or hematoma or abscess. Inflammation is seen within the subcutaneous fat in this area. There is midline abdominal wall protrusion but the overlying fascia appears intact. No free air or free fluid or new mesenteric edema is seen. No lytic process is evident. IMPRESSION: Stable small subcentimeter hypodense nodule of the posterior dome of the right lobe of the liver most likely representing a small hemangioma or cyst given stability. No new hepatic lesions are seen. The right retroperitoneal inflammation adjacent to the right psoas muscle seen previously is again evident and has not progressed. This may represent old inflammation. There is a new finding of subcutaneous inflammation of the anterior abdominal wall which appears to be related to an incision. Within the incision within the midline anterior abdominal wall is a 3 cm fluid collection which may represent a postoperative seroma or hematoma or abscess. There is a compartment of fat just superior to this fluid collection but the underlying fascia appears intact and therefore this does not appear to represent a definite hernia. Cholelithiasis. Electronically signed by: Tomi Reeder MD (10/13/2019 4:41 PM) [id number]
== END | disposition home or self-care (01) ==
LOC: CT 08:12
PROVIDERS: ATTEND Internal Medicine Hematology & Oncology
DX: C18.2 Malignant neoplasm of ascending colon (principal); K80.20 Calculus of gallbladder without cholecystitis without obstruction; E04.1 Nontoxic single thyroid nodule; R91.8 Other nonspecific abnormal finding of lung field; F17.200 Nicotine dependence, unspecified, uncomplicated; Z98.51 Tubal ligation status; Z90.710 Acquired absence of both cervix and uterus
CPT/HCPCS: 71260; 74177; Q9966; Q9967

== ENCOUNTER → 2020-04-17 | Outpatient (CLI) | payer OTHER ==
[2019-07-08 17:40] VITALS: BP 128/78
[~2020-04-17] MED LIST changes: -CONTRAST GIVEN. MC PRN; -IOHEXOL 240 MG/ML 50ML VIAL. PO ONE; -IOHEXOL 300 MG/ML 100ML VIAL. IV ONE; +VITA25006 PO
== END | disposition home or self-care (01) ==
LOC: LAB 15:13
PROVIDERS: ATTEND Surgery
DX: Z01.818 Encounter for other preprocedural examination (principal); Z11.59 Encounter for screening for other viral diseases; K43.2 Incisional hernia without obstruction or gangrene; Z88.0 Allergy status to penicillin
CPT/HCPCS: U0003-CS

== ENCOUNTER 2020-04-20 10:37 | Day surgery (SDC) | payer OTHER ==
[~2020-04-20] VITALS: Ht 160 cm; Wt 77.5 kg
[~2020-04-20 10:37] MED LIST changes: +ACETAMINOPHEN 500 MG TABLET PO ONE; +BUPIVACAINE-EPI 0.25%-1:200000 MPF 30 ML VIAL. ONE; +HYDROmorphone 2 MG/ML VIAL IV PRN; +IV RINGERS,LACTATED 1000ML 1,000 ML IV SCH; +LIDOCAINE 2% PF 5 ML VIAL. ONE; +MINERAL OIL for SURGERY 10 ML VIAL. MC ONE; +ONDANSETRON PF 4 MG/2 ML VIAL. IV PRN; +PROCHLORPERAZINE 10 MG/2 ML VIAL. IV PRN; +PROPOFOL 10 MG/ML (20ML) VIAL. IV ONE; +ROCURONIUM 50 MG/5 ML VIAL. ONE; +SUCCINYLCHOLINE 200 MG/10 ML VIAL. ONE; -VITA25006 PO; +fentaNYL PF VIAL 100 MCG/2 ML VIAL IV PRN; +fentaNYL PF VIAL 100 MCG/2 ML VIAL ONE
[2020-04-20] MEDS ORDERED: VITA25006 PO (10:53)
[2020-04-20] MEDS ORDERED: ACETAMINOPHEN 500 MG TABLET PO ONE (11:30)
--- NOTE | 2020-04-20 12:21 | PDOC1 ---
History and Physical Date of Admission Date of Admission DATE: 04/20/20 TIME: 12:18 Identification/Chief Complaint Chief Complaint Abdominal pain secondary to abdominal hernia Source Source: Patient History of Present Illness History of Present Illness 54-year-old female with a recurrent ventral incisional hernia CT scan shows ventral hernia with some incarcerated omentum no bowel involvement but she has had pain. Previous repair was December 2018 Past Medical History Cardiovascular: No pertinent hx Pulmonary: No pertinent hx GI: No pertinent hx Heme/Onc: Cancer Hepatobiliary: No pertinent hx Psych: No pertinent hx Musculoskeletal: Other Rheumatologic: No pertinent hx Infectious disease: No pertinent hx Renal/: No pertinent hx Endocrine: No pertinent hx Past Surgical History Past Surgical History: Colectomy, Colon Resection Family History Family History: Cancer, Drug Abuse Family History: Parent Social History ALCOHOL: rare Drugs: None Current Medications Current Medications Current Medications Ondansetron HCl (Zofran) 4 mg PRN Q6HRS PRN IV NAUSEA/VOMITING; Start 04/20/20 at 07:00; Stop 04/21/20 at 06:59 Fentanyl Citrate (Fentanyl 2ml Vial) 25 mcg PRN Q5MIN PRN IV MILD PAIN 1-3; Start 04/20/20 at 07:00; Stop 04/21/20 at 06:59 Fentanyl Citrate (Fentanyl 2ml Vial) 50 mcg PRN Q5MIN PRN IV MODERATE TO SEVERE PAIN; Start 04/20/20 at 07:00; Stop 04/21/20 at 06:59 Morphine Sulfate (Morphine Sulfate) 1 mg PRN Q10MIN PRN IV SEVERE PAIN 7-10; Start 04/20/20 at 07:00; Stop 04/21/20 at 06:59 Ringer's Solution 1,000 ml @ 30 mls/hr Q24H IV Last administered on 04/20/20at 11:18; Start 04/20/20 at 07:00; Stop 04/20/20 at 18:59 Hydromorphone HCl (Dilaudid) 0.5 mg PRN Q10MIN PRN IV SEV PAIN, Second choice; Start 04/20/20 at 07:00; Stop 04/21/20 at 06:59 Prochlorperazine Edisylate (Compazine) 5 mg PACU PRN PRN IV NAUSEA, MRX1; Start 04/20/20 at 07:00; Stop 04/21/20 at 06:59 Levofloxacin/ Dextrose 100 ml @ 100 mls/hr 1X PREOP PRN IV PRIOR TO PROCEDURE; Start 04/20/20 at 06:00; Stop 04/20/20 at 18:00 Mineral Oil (Muri-Lube) 10 ml STK-MED ONCE MC ; Start 04/20/20 at 08:51; Stop 04/20/20 at 08:52; Status DC Bupivacaine HCl/ Epinephrine Bitart (Sensorcaine-Epi 0.25%-1:890240 Mpf) 30 ml S TK-MED ONCE .ROUTE ; Start 04/20/20 at 08:52; Stop 04/20/20 at 08:52; Status DC Lidocaine HCl (Lidocaine Pf 2% Vial) 5 ml STK-MED ONCE .ROUTE ; Start 04/20/20 at 09:37; Stop 04/20/20 at 09:37; Status DC Propofol (Diprivan) 200 mg STK-MED ONCE IV ; Start 04/20/20 at 09:37; Stop 04/20/20 at 09:37; Status DC Succinylcholine Chloride (Anectine) 200 mg STK-MED ONCE .ROUTE ; Start 04/20/20 at 09:37; Stop 04/20/20 at 09:37; Status DC Rocuronium [place] (Zemuron) 50 mg STK-MED ONCE .ROUTE ; Start 04/20/20 at 09 :37; Stop 04/20/20 at 09:37; Status DC Fentanyl Citrate (Fentanyl 2ml Vial) 100 mcg STK-MED ONCE .ROUTE ; Start 04/20/20 at 09:37; Stop 04/20/20 at 09:37; Status DC Acetaminophen (Tylenol) 500 mg STK-MED ONCE PO ; Start 04/20/20 at 10:33; Stop 04/20/20 at 10:33; Status DC Acetaminophen (Tylenol) 1,000 mg 1X ONCE PO Last administered on 04/20/20at 11:27; Start 04/20/20 at 11:30; Stop 04/20/20 at 11:31; Status DC Active Scripts Active Reported Noxifol-D3 2,500 Unit-1 mg Tab (Vitamin D3/Folic Acid) 2,500 Unit Tablet 2,500 Unit PO DAILY Gabapentin 600 Mg Tablet 300 Mg PO BID Allergies Allergies: Coded Allergies: Penicillins (Verified Allergy, Intermediate, Heartbeat slowed down,throat tight,brokeout w/rash all over, 04/18/20) ROS Gastrointestinal: Yes Abdominal Pain Physical Exam General: Alert, Oriented X3, Cooperative, mild distress HEENT: Atraumatic Lungs: Clear to auscultation, Normal air movement Heart: RRR, no murmurs Abdomen: Normal bowel sounds, Soft, Other (Midline bulge consistent with a hernia tender to palpation no skin changes) Rectal Exam: not examined Extremities: No edema Skin: No significant lesion Neuro: Normal speech Psych/Mental Status: Mental status NL Vitals Vitals Vital Signs Date Time Temp Pulse Resp B/P (MAP) Pulse Ox O2 Delivery O2 Flow Rate FiO2 04/20/20 11:22 Room Air 04/20/20 11:21 97.4 77 16 96 97.4 04/20/20 11:19 137/82 VTE Prophylaxis Ordered VTE Prophylaxis Devices: Yes VTE Pharmacological Prophylaxi: Contraindicated Assessment/Plan Assessment/Plan Recurrent ventral incisional hernia plan robotic assisted laparoscopic repair possible open Justicifation of Admission Dx: Justifications for Admission: Justification of Admission Dx: N/A SANTOS LOZADA MD Apr 20, 2020 12:21
[2020-04-20] MEDS ORDERED: ONDANSETRON PF 4 MG/2 ML VIAL. ONE (13:06)
[2020-04-20] MEDS ORDERED: DEXAMETHASONE SOD PHOS 4 MG/ML VIAL ONE (13:06)
[2020-04-20] MEDS ORDERED: DESFLURANE 31 TO 60 MINUTES IH ONE (13:06)
[2020-04-20] MEDS ORDERED: NEOSTIGMINE METHYLSULFATE 5 MG/5 ML SYRINGE. ONE (13:22)
[2020-04-20] MEDS ORDERED: GLYCOPYRROLATE 1 MG/5 ML VIAL. ONE (13:22)
[2020-04-20] MEDS ORDERED: ePHEDrine PF IN SALINE 50 MG/10 ML SYRINGE. IV ONE (13:23)
--- NOTE | 2020-04-20 14:51 | PDOC4 ---
Operative Note Operative Note Date: 04/20/2020 at 1446 Preoperative diagnosis: Recurrent incisional hernia Postoperative diagnosis: Same Procedure: Robot-assisted laparoscopic incisional hernia repair with mesh Surgeon: Marito Specimen: None Dictation: Patient is a 54-year-old female who had a colon resection with midline incision subsequently developed a hernia this was repaired approximately a year ago and now she returns with recurrent hernia procedure of robotic assisted laparoscopic ventral hernia repair with mesh was explained to the patient detail was benefits were also discussed including bleeding infection injury to intra-abdominal contents possibly necessitating further open operations alternatives to this procedure also discussed with the patient who seemed to understand and gave both verbal and written consent to have the procedure performed. Patient was taken to the operating room placed the supine position general anesthesia was initiated once patient was sleeping intubated her abdomen was prepped and draped usual sterile fashion using ChloraPrep and area in the left upper quadrant was injected quarter percent Marcaine with epinephrine and incision was made 11 blade scalpel and a 5 mm Visiport was placed under direct visualization into the abdomen creating pneumoperitoneum once this was complete 5 mm camera was placed within the abdomen and inspected it was noted that the recurrent hernia was actually to the right of the midline previous mesh was intact but the fascia had pulled away from the right border of the previous mesh causing a hernia there were some adherent tissues to the hernia defect. A 8 mm da Michael port was placed in left abdomen under direct utilization a bariatric da Michael port was placed in the lower left abdomen and a 8 mm da Michael port was placed in the left upper abdomen the da Michael robot was brought and docked all port sites surgeon went to the robotic console using a grasper and Endo Saeed scissors the adherent tissues to the hernia were taken down with blunt and sharp dissection completely reducing all hernia contents. The hernia defect was then closed with a running V lock nonabsorbable suture starting at the 6 superior and running it half of the length of the hernia a second 1 was used at the inferior and running to half the length of the hernia until the hernia was completely closed this was accomplished by reducing the pressure from 15 mmHg down to 7 mmHg once this was closed the pressure was then brought up to 15 mmHg again using a ventral light ST mesh 10.2 cm x 15.2 cm was placed over the hernia defect this was sewn into place with absorbable V lock suture circumferentially. Once this was complete all the needles were removed. The robot was undocked from all port sites the pneumoperitoneum was reduced all port sites were removed the port sites were closed for subcuticular Monocryl Mastisol Steri-Strips and island dressings were applied. A abdominal binder was then applied and the patient was awakened and extubated in the operating room taken to recovery in stable condition all sponge instrument needle counts listed as correct estimated blood loss 5 mL. SANTOS LOZADA MD Apr 20, 2020 14:51
--- NOTE | 2020-04-20 14:55 | DISCH ---
DISCHARGE INSTRUCTIONS Condition on Discharge Condition on Discharge: Stable Activity After Discharge Activity Instructions for Disc: Avoid exertion Other activity instructions: No lifting more than 20 pounds for 4 weeks Diet after Discharge Diet after Discharge: Regular Wound Incision Care Other wound/incision instructi: May shower in 24 hours, wear abdominal binder during the day Contacting the DRPhilipp after DC Call your doctor for: If your condition worsens Follow-Up Follow up with: Dr. Lozada in 2 weeks SANTOS LOZADA MD Apr 20, 2020 14:55
[2020-04-20] MEDS: fentaNYL PF VIAL 100 MCG/2 ML VIAL IV PRN ×2 (15:17→15:33)
[2020-04-20] MEDS ORDERED: HYDROcodone/APAP 5/325MG 1 TAB TABLET PO ONE ×2 (15:30)
[2020-04-20] MEDS ORDERED: HYDR-3164 PO (15:37)
[2020-04-20] MEDS: MORPHINE SULFATE 2 MG/ML VIAL. IV PRN ×2 (15:50→15:59)
[2020-04-20 16:15] VITALS: BP 119/67
== END 2020-04-20 17:05 | disposition home or self-care (01) ==
LOC: SURG 10:37
PROVIDERS: ATTEND Surgery
DX: K43.2 Incisional hernia without obstruction or gangrene (principal); Z88.0 Allergy status to penicillin
CPT/HCPCS: 49656; C1781; J0330; J0780; J1100; J1956; J2270; J2405; J2704; J2710; J3010; J3490; J7120; S2900

== ENCOUNTER → 2022-03-19 | Outpatient (CLI) | payer OTHER ==
[~2022-03-19] MED LIST changes: -ACETAMINOPHEN 500 MG TABLET PO ONE; -ASPI-612 PO; +ASPI-886 PO; -BUPIVACAINE-EPI 0.25%-1:200000 MPF 30 ML VIAL. ONE; -HYDROmorphone 2 MG/ML VIAL IV PRN; +IOHEXOL 240 MG/ML 50ML VIAL. PO ONE; +IOHEXOL 300 MG/ML 100ML VIAL. IV ONE; -IV RINGERS,LACTATED 1000ML 1,000 ML IV SCH; -LIDOCAINE 2% PF 5 ML VIAL. ONE; -MINERAL OIL for SURGERY 10 ML VIAL. MC ONE; -ONDANSETRON PF 4 MG/2 ML VIAL. IV PRN; -PROCHLORPERAZINE 10 MG/2 ML VIAL. IV PRN; -PROPOFOL 10 MG/ML (20ML) VIAL. IV ONE; -ROCURONIUM 50 MG/5 ML VIAL. ONE; -SUCCINYLCHOLINE 200 MG/10 ML VIAL. ONE; +VITA25006 PO; -fentaNYL PF VIAL 100 MCG/2 ML VIAL IV PRN; -fentaNYL PF VIAL 100 MCG/2 ML VIAL ONE
--- NOTE | 2022-03-19 11:52 | KCIC ---
EXAMINATION: CT chest, abdomen and pelvis with IV contrast. INDICATION:56 years, Female, colon cancer. Follow-up exam. TECHNIQUE: Axial CT images of the chest, abdomen and pelvis were obtained. Coronal and sagittal refor matted performed. COMPARISON: 10/13/2019. Exposure: One or more of the following individualized dose reduction techniques were utilized for thi s examination: 1. Automated exposure control 2. Adjustment of the mA and/or kV according to patient size 3. Use of iterative reconstruction technique. FINDINGS: CHEST: Visualized thyroid and esophagus are unremarkable. No lymphadenopathy in the chest by size criteria. Normal cardiac size with no pericardial effusion. Normal caliber thoracic aorta and pulmonary arterie s. No coronary artery atherosclerotic calcifications. Central airways are patent. No focal consolidat ion, pleural effusion or pneumothorax. Mild centrilobular pulmonary emphysema in the upper lobes. No suspicious pulmonary nodule. ABDOMEN/PELVIS: Enlarged left and caudate lobes with mild surface nodularity. Unchanged subcentimeter hypodensities i n the subcapsular hepatic segment 7 and segment 6, likely benign lesion such as cysts and/or hemangio mas. There is a 1.0 cm enhancing lesion in right hepatic dome (series 4 image 9). There is a 0.7 cm e nhancing lesion in subcapsular hepatic segment 2 (series 4 image 15). There is an ill-defined enhanci ng lesion in lateral hepatic segment 2 measures 1.0 cm (series 4 image 24). Multiple tiny cholelithia sis. No biliary ductal dilation. Unchanged mild splenomegaly measures up to 13.5 cm in length. Unrema rkable pancreas. Similar 1.7 cm left adrenal nodule, likely benign. Right adrenal gland is unremarkab le. No hydronephrosis or nephrolithiasis in either kidney. Unchanged 6 mm hyperdense nodule exophytic from the posterior cortex of the right kidney, indeterminate. No bowel dilation. Postsurgical changes of right hemicolectomy. No evidence of local tumor recurrence . Patent abdominal vasculatures. Cannulization of umbilical vein with mild portosystemic venous colla terals. No lymphadenopathy in the abdomen or pelvis by size criteria. No pneumoperitoneum or ascites. Unremarkable urinary bladder. Hysterectomy. No suspicious pelvic masses. MUSCULOSKELETAL STRUCTURES: No suspicious osseous lesion or acute process. Multilevel degenerative changes in the spine. Postsurg ical changes of infraumbilical ventral herniorrhaphy with mesh. There is a new large size midline willy tral abdominal hernia containing fat, transverse colon and multiple loops of small bowel without obst ruction. IMPRESSION: 1. Right hemicolectomy changes with no local tumor recurrence. 2. Morphology of the liver likely reflecting chronic disease with cannulization of umbilical vein and mild splenomegaly. 3. Few enhancing bilobar hepatic lesions measuring up to 1.0 cm, new since prior exam. Differential c onsideration includes perfusion changes, focal nodular hyperplasias, and multifocal hepatocellular ca rcinomas given liver morphology. Metastasis is felt to be less likely. Recommend further evaluation w ith MRI liver using hepatobiliary contrast (Eovist). 4. Multiple tiny cholelithiasis. 5. Unchanged 6 mm hyperdense nodule exophytic from the posterior cortex of the right kidney, indeterm inate. This nodule can be further evaluated by the recommended MRI. 6. New large size ventral abdominal hernia containing fat, transverse colon and multiple loops of sma ll bowel, without obstruction. Electronically signed by: Will Vázquez MD (03/19/2022 11:50 AM) [id number]
== END ==
LOC: KCIC CT 07:57
PROVIDERS: ATTEND Internal Medicine Hematology & Oncology
DX: C18.2 Malignant neoplasm of ascending colon (principal); K80.20 Calculus of gallbladder without cholecystitis without obstruction; R16.1 Splenomegaly, not elsewhere classified; J43.2 Centrilobular emphysema; K43.9 Ventral hernia without obstruction or gangrene; K46.9 Unspecified abdominal hernia without obstruction or gangrene; E27.8 Other specified disorders of adrenal gland; M47.819 Spondylosis without myelopathy or radiculopathy, site unspecified; Z90.49 Acquired absence of other specified parts of digestive tract; Z90.710 Acquired absence of both cervix and uterus
CPT/HCPCS: 71260; 74177; Q9966; Q9967